=== PATIENT | female | born 1965 | race Caucasian/White ===

== ENCOUNTER 2016-08-23 15:49 | Emergency (ER) | payer OTHER ==
[~2016-08-23] VITALS: Ht 162.6 cm; Wt 81.5 kg
[~2016-08-23 15:49] MED LIST: NOHOMEMEDS
[2016-08-23 18:45] VITALS: BP 127/98
== END 2016-08-23 18:46 | disposition home or self-care (01) ==
LOC: EME 15:49
DX: F07.81 Postconcussional syndrome (principal); S16.1XXA Strain of muscle, fascia and tendon at neck level, initial encounter; S09.90XA Unspecified injury of head, initial encounter; W17.89XA Other fall from one level to another, initial encounter
CPT/HCPCS: 70450; 99281; 99283